=== PATIENT | male | born 1945 | race Caucasian/White ===

== ENCOUNTER 2024-09-04 13:37 | Outpatient (RCR) | payer MEDICARE, OTHER | END 2024-09-18 | LOC: M PT 13:37 | PROVIDERS: ATTEND Registered Nurse | DX: I89.0 Lymphedema, not elsewhere classified (principal) ==

== ENCOUNTER 2024-12-05 14:24 | Outpatient (RCR) | payer OTHER | END 2024-12-19 | LOC: M PT 14:24 | PROVIDERS: ATTEND Registered Nurse | DX: I89.0 Lymphedema, not elsewhere classified (principal) ==

== ENCOUNTER 2024-12-23 15:00 | Outpatient (RCR) | payer OTHER | END 2025-01-19 | LOC: M PT 15:00 | PROVIDERS: ATTEND Registered Nurse | DX: I89.0 Lymphedema, not elsewhere classified (principal) ==